=== PATIENT | female | born 1975 | race Caucasian/White ===

== ENCOUNTER 2017-01-06 20:37 | Emergency (ER) | payer BC ==
[~2017-01-06] VITALS: Ht 165.1 cm; Wt 56.1 kg
[~2017-01-06 20:37] MED LIST: MTR600X PO
[2017-01-06 20:40] VITALS: BP 124/87; PULSE 69; TEMP 36.8; O2SAT 98; Ht 165.1 cm; Wt 56.1 kg
--- NOTE | 2017-01-06 23:23 | EMERGENCY ROOM VISIT NOTE ---
History First contact with patient: 20:43 Chief Complaint: LACERATION/CUT (SUT/DERMABOND) Stated Complaint: CUT ON HEAD History of Present Illness The patient is a 41 year old female who presents to the Emergency Room with complaints of a laceration to her scalp. The patient reports that she opened a medicine cabinet door, then bent over to help her child before standing up. She forgot that the door was open, and hit her head on the corner of the door. She denies any loss of consciousness, headache, nausea, neck pain or other concerning symptoms. She rates her discomfort a 3 out of 10. Tetanus immunization is up-to-date. Review of Systems 10 system review was performed and was negative except for pertinent positives and negatives as indicated in history of present illness Past Medical/Surgical History Medical Problems: (1) No significant past medical history Surgical Problems: (1) No history of previous surgery Family History Unremarkable Social History Smoking Status: Never Smoker Alcohol Use: occasionally Marital Status: other (legally ) Housing Status: lives with family Occupation Status: employed Current/Historical Medications Scheduled PRN Ibuprofen (Ibuprofen), 600 MG PO Q4H PRN for PAIN, ESPINAL, CRAMPING OR FEVER Physical Exam Vital Signs Date Time Temp Pulse Resp B/P (MAP) Pulse Ox O2 Delivery O2 Flow Rate FiO2 01/06/17 20:40 36.8 69 16 124/87 98 Room Air Physical Exam CONSTITUTIONAL: Healthy and well nourished. Alert and oriented X 3 with positive affect. Patient does not appear in any acute distress. HEENT: Examination of the superior scalp shows a 1 cm laceration that does not extend into the underlying subcutaneous tissue. No hematoma formation or active bleeding. Pupils equal, round and reactive. No hemotympanum or epistaxis. NECK: Full active range of motion without discomfort. INTEGUMENTARY: No rash or other significant dermatologic conditions noted. NEUROLOGIC: No focal neurologic deficits noted. Medical Decision & Procedures ED Course Patient history and physical exam were performed. Nurse's notes were reviewed. Vital signs were reviewed and were normal. The patient was advised that the laceration does not extend into the underlying subcutaneous space, and is well approximated. I did suggest allowing the wound to heal by secondary intention. The patient was in agreement. The wound was cleansed and covered with a bacitracin ointment. She was instructed to keep the wound clean, watching for any signs of infection. Intermittent application of ice as needed for swelling. Ibuprofen or Tylenol if needed for additional pain relief. The patient was happy with plan of care, voiced understanding of all discharge instructions, and denied any significant pain at the time of discharge. Medical Decision Medication Reconcilliation Current Medication List: was personally reviewed by me Blood Pressure Screening Patient's blood pressure: Normal blood pressure Impression Primary Impression: Laceration of scalp Departure Information Dispostion Home / Self-Care Condition GOOD Referrals No Doctor, Assigned Forms HOME CARE DOCUMENTATION FORM, IMPORTANT VISIT INFORMATION Patient Instructions My [facility] Additional Instructions Keep wound clean and covered with an antibiotic ointment. Do not allow any crusting or dried blood to accumulate. If this occurs, use a 1:1 solution of hydrogen peroxide/water on a Q-tip/gauze to clean the wound. As long as the wound is wet, keep it covered with an antibiotic ointment. Ice as needed for swelling and pain. Ibuprofen 600 mg and/or Tylenol 1000 mg every 6 hrs if needed for pain. Problem Qualifiers Primary Impression: Laceration of scalp Encounter type: initial encounter Qualified Codes: S01.01XA - Laceration without foreign body of scalp, initial encounter
== END 2017-01-06 21:00 | disposition home or self-care (01) ==
LOC: C.EDB 20:38 → C.EDD 21:00
DX: S01.01XA Laceration without foreign body of scalp, initial encounter (principal); W22.8XXA Striking against or struck by other objects, initial encounter

== ENCOUNTER 2020-09-12 07:36 | Inpatient (IN) ==
[2020-09-12] MEDS ORDERED: DINOPROSTONE 10 MG INSERT PV ONE (08:05)
[2020-09-12] MEDS ORDERED: OXYTOCIN 30 UNITS/500 ML BAG IV PRN ×2 (08:05→23:41)
[2020-09-12 08:27] LABS: Hematocrit (blood only) 31.5 % (37-47); Hemoglobin 10.3 g/dL (12.0-16.0); Mean Corpuscular Hemoglobin 27.5 pg (25-34); Mean Corpuscular Hgb Conc 32.7 g/dL (32-36); Mean Platelet Volume 11.4 fL (7.4-10.4); Nucleated RBC # (auto) 0.02 K/uL (0-0); Nucleated RBC % (auto) 0.2 %; Platelet Count 158 K/uL (130-400); RDW Coefficient of Variation 14.4 % (11.5-14.5); Red Blood Count 3.75 M/uL (4.2-5.4); White Blood Count 9.79 K/uL (4.8-10.8)
[2020-09-12] MEDS: LACTATED RINGER'S 1,000 ML IV PRN ×2 (08:30→17:57)
--- NOTE | 2020-09-12 08:38 | History & Physical Report ---
Date of Service September 12, 2020 Assessment & Plan (1) AMA (advanced maternal age) multigravida 35+: (2) with maternal age 40 years or more in third trimester: 45-year-old female -0-3-1 at 39 weeks of gestation presenting today for induction of labor at term, Vital signs stable afebrile heart rate reassuring GBS negative Plan to admit, monitor, labs and cervical ripening with Cervidil. Discussed what to expect from induction and all questions were answered. Admission and Anticipated Discharge Date Admission Date: September 12, 2020 History of Present Illness Primary Care Provider: Deb Alcala PA-C Patient is to 45-year-old -0-3-1 at 39 weeks of gestation who was scheduled for induction of labor at term due to being AMA. She has no complaints. She denies contractions, leakage of fluid, vaginal bleeding and she reports good movements. Her has been complicated by 1 AMA, had CVS 2 history of Pompeii disease, carrier, father of baby is negative 3 recurrent vaginal Tiff on Terazol 2 times a week 4 history of C. difficile 5) Mild asthma Allergies Allergy/AdvReac Type Severity Reaction Status Date / Time No Known Allergies Allergy Verified 08/03/20 09:03 Home Medications Medication Instructions Recorded Confirmed Type albuterol mcg INHALATION QID PRN 08/03/20 History beclomethasone dipropionate [Qvar] 80 mcg INHALATION BID 08/03/20 08/03/20 History cetirizine [Zyrtec] 10 mg PO DAILY 08/03/20 08/03/20 History docusate sodium 100 mg PO BID 08/03/20 08/03/20 History nifedipine [Procardia XL] 30 mg PO BID #50 tab 08/03/20 Rx vit-ferrous sulfat-FA 1 tab PO DAILY 08/03/20 08/03/20 History [] terconazole 0.4 % VAGINAL 2XWK 08/03/20 08/03/20 History Patient History Social History Smoking Status: Never smoker Hx Alcohol Use: No Hx Substance Use: No Preferred Language: Serbian Beliefs That Will Affect Care: None marital status: Current Living Situation: Spouse and Family Feels Safe at Home: No Assistive Devices: None OB History FT in 2014 3 [employer]AB [employer] History NO h/o STD's, no h/o HSV/ Chlamydia/ GC Review of Systems All systems reviewed & are unremarkable except as noted in HPI & below Physical Exam Constitutional: WD/WN, vitals as above well developed and well nourished NAD Gastrointestinal (Abdomen): normal bowel sounds, soft, nontender, no hepatosplenomegaly (Gravid, Todd 8 lb) Genitourinary: normal external appearance Manual OB Exam: + cervical dilation 2 cm, + cervical effacement 60% and + station -2 OB Exam Monitor Tracing: + external uterine monitor used and + category I Results & Data ([facility]) Vital Signs (Past 12 Hours) Vital Signs Pulse BP 09/12/20 07:48 115 H 149/79 H
[2020-09-12 08:53] LABS: Alanine Aminotransferase 19 U/L (12-78); Albumin Level 2.3 gm/dl (3.4-5.0); Aspartate Aminotransferase 26 U/L (15-37); BUN Creatinine Ratio 14.1 (10-20); Blood Urea Nitrogen 8 mg/dl (7-18); Calcium 8.9 mg/dl (8.5-10.1); Carbon Dioxide 21 mmol/L (21-32); Chloride 110 mmol/L (98-107); Est GFR (African American) 134.8 ml/min; Est GFR (Non-African American) 116.3 ml/min; Glucose 105 mg/dl (70-99); Potassium 3.5 mmol/L (3.5-5.1); Sodium 139 mmol/L (136-145)
[2020-09-12 08:56] LABS: Albumin Globulin Ratio 0.6 (0.9-2); Alkaline Phosphatase 142 U/L (45-117); Bilirubin,Total 0.2 mg/dl (0.2-1); Total Protein 6.3 gm/dl (6.4-8.2)
[2020-09-12] MEDS ORDERED: BUTORPHANOL TARTRATE 1 MG/ML VIAL IV PRN (09:00)
[2020-09-12] MEDS ORDERED: PATIENT'S HEIGHT AND/OR WEIGHT NEEDED SCH (09:15)
--- NOTE | 2020-09-12 15:04 | Obstetrical Progress Note ---
Date of Service September 12, 2020 Assessment & Plan Admission and Anticipated Discharge Date Admission Date: September 12, 2020 Subjective Patient is reevaluated. She has been feeling mild contractions every 3 to 4 minutes. She rates them 1-2 out of 10 in terms of intensity. No leakage of fluid or vaginal bleeding. Good movements. Vaginal exam, unchanged 2 cm, 50%, -2, cervidil is in place heart rate category 1. [place] contractions every 2 to 4 minutes. Continue to monitor closely. Results & Data ([facility]) Vital Signs (Past 12 Hours) Vital Signs Temp Pulse Resp BP 09/12/20 13:24 94 H 128/73 09/12/20 13:21 36.6 C 18 09/12/20 12:05 18 09/12/20 10:57 18 09/12/20 08:59 95 H 117/71 09/12/20 08:35 95 H 117/71 09/12/20 07:48 115 H 149/79 H 09/12/20 07:46 36.8 C
--- NOTE | 2020-09-12 21:19 | Obstetrical Progress Note ---
Date of Service September 12, 2020 Assessment & Plan Admission and Anticipated Discharge Date Admission Date: September 12, 2020 Subjective Is reevaluated to remove Cervidil. She has been walking around and contractions are getting more painful, 3-4/ 10 in intensity. Not very painful when she is laying on her bed. No leakage of fluid or vaginal bleeding and she reports good movements. heart rate category 1, [place], contractions every 2-3 minutes, feels mild to moderate. Vaginal exam, cervix is 3 to 4 cm dilated, 70% effaced, -2 with tight bag. Discussed option of AROM versus food now and await contractions to space out and then start IV Pitocin. She has multiple questions about benefits of risks of each and wants to think about it and then decide. Answered all questions. Continue to monitor closely. Results & Data ([facility]) Vital Signs (Past 12 Hours) Vital Signs Temp Pulse Resp BP 09/12/20 19:26 90 137/68 09/12/20 19:25 36.8 C 18 09/12/20 18:05 18 09/12/20 17:54 18 09/12/20 15:02 36.8 C 80 18 126/67 09/12/20 13:24 94 H 128/73 09/12/20 13:21 36.6 C 18 09/12/20 12:05 18 09/12/20 10:57 18
[2020-09-12] MEDS ORDERED: SODIUM CHLORIDE 0.9% INJ 10 ML VIAL ONE (22:34)
[2020-09-12] MEDS ORDERED: ePHEDrine sulfate 50 MG/ML AMP ONE (22:34)
[2020-09-12] MEDS ORDERED: BUPIVACAINE 0.25% 30 ML VIAL ONE (22:35)
[2020-09-12] MEDS ORDERED: fentaNYL citrate 100 MCG/2 ML VIAL ONE (22:35)
[2020-09-12] MEDS ORDERED: fentaNYL 2MCG/ML ROPIVACAINE 1.25MG/ML 100 ML BAG EPI ONE (22:35)
--- NOTE | 2020-09-12 22:37 | Anesthesiology Consultation ---
Date of Service September 12, 2020 Assessment & Plan Chart Review Chart Review: Acceptable Risk for Surgery, Patient NOT seen in Pre Admission Testing and Acceptable Risk for Labor Epidural Consults Requested none ASA ASA2 Proposed Anesthesia Anesthesia Type: Labor Epidural and CSE History Height/Weight Height: 5 ft 5 in Weight: 70.307 kg Allergies Allergy/AdvReac Type Severity Reaction Status Date / Time No Known Allergies Allergy Verified 08/03/20 09:03 Medications Home Medications Medication Instructions Recorded Confirmed Last Taken cetirizine [Zyrtec] 10 mg PO DAILY 08/03/20 09/12/20 09/12/20 06:00 docusate sodium 100 mg PO TID 08/03/20 09/12/20 09/12/20 06:00 [id number] 1 tab PO DAILY 09/12/20 09/12/20 09/12/20 [] terconazole 1 applic VAGINAL DAILY 09/12/20 09/12/20 09/11/20 Active Medications Generic Name Dose Route Start Last Admin Trade Name Coleq PRN Reason Stop Dose Admin Lactated Ringer's 1,000 mls @ 150 mls/hr 09/12/20 08:05 09/12/20 17:57 Lr IV 09/14/20 08:04 150 mls/hr .[id number] PRN Administration L&D Protocol Protocol Exercise / Class Metabolic Activity II 4-5 Yardwork/Stairs/Walk up hill Past Anesthesia History No Hx of Anesthesia Complications and No Family Hx of Anesthesia Complications History of PONV No Hx of PONV and No Hx of Motion Sickness Social History Smoking Status: Never smoker Hx Alcohol Use: No Hx Substance Use: No Physical Exam Vital Signs Last Vital Signs Temp 36.8 C 09/12/20 22:20 Pulse 81 09/12/20 22:23 Resp 18 09/12/20 22:20 BP 132/69 09/12/20 22:23 Testing Laboratory Results 09/12/20 08:10 09/12/20 08:10
[2020-09-12] MEDS ORDERED: NALOXONE HCL 1 MG in SODIUM CHLORIDE 0.9% 1000ML 1,000 ML IV PRN (23:14)
[2020-09-12] MEDS ORDERED: ONDANSETRON INJ 2 MG/ML 2 ML VIAL IV PRN (23:14)
[2020-09-12] MEDS ORDERED: fentaNYL 2MCG/ML ROPIVACAINE 1.25MG/ML 100 ML BAG EPI PRN (23:14)
[2020-09-12] MEDS ORDERED: NALOXONE HCL 0.4 MG/1 ML VIAL/CARP IV PRN (23:14)
[2020-09-12] MEDS ORDERED: diphenhydrAMINE 50 MG/ML VIAL IV PRN (23:14)
[2020-09-12] MEDS ORDERED: PROMETHAZINE HCL 25 MG in SODIUM CHLORIDE 0.9% 50 ML IV PRN (23:14)
[2020-09-12] MEDS ORDERED: ePHEDrine sulfate 50 MG/ML AMP IV PRN (23:14)
--- NOTE | 2020-09-12 23:41 | Obstetrical Progress Note ---
Date of Service September 12, 2020 Assessment & Plan Admission and Anticipated Discharge Date Admission Date: September 12, 2020 Subjective Late entry from 10:30 pm Patient decided for AROM. Vaginal exam, 4 cm, 70%, bulging tight bag, AROM , abundant clear fluid was obtained. heart rate category 1. Contractions every 1 to 3 minutes. She got more painful and decided for epidural for pain. She received epidural and comfortable now. Continue to monitor closely. We will augment with Pitocin as needed. Results & Data ([facility]) Vital Signs (Past 12 Hours) Vital Signs Temp Pulse Resp BP Pulse Ox 09/12/20 23:36 74 97/53 L 09/12/20 23:32 82 97 09/12/20 23:27 76 97 09/12/20 23:22 78 97 09/12/20 23:20 74 103/56 L 09/12/20 23:17 79 109/56 L 97 09/12/20 23:15 75 106/55 L 09/12/20 23:12 77 110/56 L 98 09/12/20 23:09 89 114/79 09/12/20 23:07 88 99 09/12/20 23:02 84 100 09/12/20 22:57 89 138/74 100 09/12/20 22:52 82 99 09/12/20 22:47 86 99 09/12/20 22:42 85 100 09/12/20 22:23 81 132/69 09/12/20 22:20 36.8 C 18 09/12/20 19:26 90 137/68 09/12/20 19:25 36.8 C 18 09/12/20 18:05 18 09/12/20 17:54 18 09/12/20 15:02 36.8 C 80 18 126/67 09/12/20 13:24 94 H 128/73 09/12/20 13:21 36.6 C 18 09/12/20 12:05 18
[2020-09-13] MEDS: LACTATED RINGER'S 1,000 ML IV PRN (03:30)
[2020-09-13] MEDS ORDERED: MINERAL OIL 30 ML UDC ONE (05:54)
[2020-09-13] MEDS ORDERED: BENZOCAINE 20% AER SPR 82.5 GM CAN EXT PRN (06:44)
[2020-09-13] MEDS ORDERED: ACETAMINOPHEN 325 MG TAB PO PRN (06:44)
[2020-09-13] MEDS ORDERED: DIPHTHERIA/TETANUS/PERTUSSIS 0.5 ML SYR/VIAL IM ONE (06:44)
[2020-09-13] MEDS ORDERED: SUPERCREAM 0.870% 15 GM JAR EXT PRN (06:44)
[2020-09-13] MEDS ORDERED: OXYTOCIN 30 UNITS/500 ML BAG IV PRN (06:44)
[2020-09-13] MEDS ORDERED: HYDROCORTISONE ACETATE 25 MG SUPP PR PRN (06:44)
[2020-09-13] MEDS ORDERED: MEASLES, MUMPS & RUBELLA VIRUS VIAL SQ ONE (06:44)
[2020-09-13] MEDS ORDERED: bisacodyL 10 MG SUPP PR PRN (06:44)
[2020-09-13] MEDS ORDERED: DOCUSATE SODIUM 100 MG CAP PO SCH ×3 (08:00→21:00)
--- NOTE | 2020-09-13 08:25 | Anesthesia Procedure Note ---
Date of Service September 13, 2020 Anesthesia Post Epidural Note Vital Signs Vital Signs: Temp Pulse Resp BP Pulse Ox 36.7 C 85 18 99/58 L 100 09/13/20 06:46 09/13/20 08:17 09/13/20 06:46 09/13/20 08:17 09/13/20 06:22 Notes Mental Status: alert / awake / arousable and participated in evaluation Patient Amnestic to Procedure: No Nausea / Vomiting: adequately controlled Pain: adequately controlled Airway Patency, RR, SpO2: stable & adequate BP & HR: stable & adequate Hydration State: stable & adequate Neuraxial Anesthesia: was administered and sensory block is resolving Anesthetic Complications: no major complications apparent and Pt Satisfied with anesthetic care Epidural: Removed without complications and With tip intact
--- NOTE | 2020-09-13 09:11 | Delivery Summary ---
DATE OF DELIVERY: 08/27/2020. TIME: 06:24 a.m. DETAILS OF DELIVERY: Patient was found to be fully dilated and desired to push. She pushed for about 40 minutes and delivered the head without difficulty. Shoulders were delivered with minimal traction. The baby was handed off to the mother where mouth and nose were suctioned. Cord was clamped x2 and cut at 1 minute delay. Cord blood was obtained. Vagina and perineum were checked for lacerations. There was a small second-degree perineal laceration, which was repaired with 2-0 Vicryl in a running fashion. Excellent hemostasis was achieved. The rest of the vagina was intact. Placenta was found to be in the vagina, delivered spontaneously intact and complete. Uterus was explored and found to be empty. Lower segment was cleared of all clots and debris. The fundus was firm. EBL was 250 mL. Mom and baby tolerated the procedure well. Sponge, needle and instrument counts were correct x2. Baby was a viable female , Apgars 8 and 9, weight is 3359 gr. No complications happened and I was present during whole procedure. Job ID: [id number] [facility]
[2020-09-13] MEDS: IBUPROFEN 600 MG TAB PO PRN ×3 (09:32→20:03)
[2020-09-13] MEDS: FERROUS SULFATE 325 MG TAB PO SCH (13:22)
[2020-09-13] MEDS: PRENATAL VITAMIN 1 TAB PO SCH (13:23)
[2020-09-13] MEDS ORDERED: Nursing to Pharmacy Communication SCH (18:15)
[2020-09-14] MEDS: IBUPROFEN 600 MG TAB PO PRN ×2 (03:22→08:30)
[2020-09-14 06:35] LABS: Hematocrit (blood only) 28.7 % (37-47); Hemoglobin 9.5 g/dL (12.0-16.0); Mean Corpuscular Hemoglobin 27.5 pg (25-34); Mean Corpuscular Hgb Conc 33.1 g/dL (32-36); Mean Corpuscular Volume 82.9 fL (80-100); Mean Platelet Volume 11.1 fL (7.4-10.4); Platelet Count 145 K/uL (130-400); RDW Coefficient of Variation 14.6 % (11.5-14.5); RDW Standard Deviation 43.8 fL (36.4-46.3); Red Blood Count 3.46 M/uL (4.2-5.4)
[2020-09-14] MEDS ORDERED: DOCUSATE SODIUM 100 MG CAP PO SCH (08:00)
[2020-09-14 08:14] VITALS: BP 113/74; PULSE 78; TEMP 97.7; O2SAT 99
[2020-09-14] MEDS: PRENATAL VITAMIN 1 TAB PO SCH (08:30)
[2020-09-14] MEDS: FERROUS SULFATE 325 MG TAB PO SCH (08:33)
--- NOTE | 2020-09-14 10:58 | Obstetrical Progress Note ---
Date of Service September 14, 2020 Subjective Ambulation: ambulating normally Voiding: no voiding problems Passing Gas:: Yes Diet Tolerance:: regular diet Lochia:: Small Feeding Type:: breast feeding Physical Exam Constitutional WD/WN, vitals as above comfortable plans for d/c today abdomen soft and non-tender no edema neg Geovanna's Results & Data ([facility]) Vital Signs (Past 12 Hours) Vital Signs Temp Pulse Resp BP Pulse Ox 09/14/20 07:55 36.5 C 78 18 113/74 99 09/14/20 03:20 36.7 C 79 18 124/75 09/13/20 23:15 36.8 C 81 18 138/77 Laboratory Results 09/12/20 09/12/20 09/12/20 07:50 07:50 08:10 WBC 9.79 RBC 3.75 L Hgb 10.3 L Hct 31.5 L MCV 84.0 MCH 27.5 MCHC 32.7 RDW Std Deviation 44.0 RDW Coeff of [place] 14.4 Plt Count 158 MPV 11.4 H Absolute Nucleated RBC 0.02 H Nucleated RBC % (auto) 0.2 Sodium Potassium Chloride Carbon Dioxide Anion Gap BUN Creatinine Est Cr Clr Drug Dosing Est GFR ( Amer) Est GFR (Non-Af Amer) BUN/Creatinine Ratio Glucose Calcium Total Bilirubin AST ALT Alkaline Phosphatase Total Protein Albumin Globulin Albumin/Globulin Ratio COVID-19 Eval Order Covid19 IDNow [facility] SARS-CoV-2, RNA, NAAT NEGATIVE 09/12/20 09/14/20 08:10 06:20 WBC 11.50 H RBC 3.46 L Hgb 9.5 L Hct 28.7 L MCV 82.9 MCH 27.5 MCHC 33.1 RDW Std Deviation 43.8 RDW Coeff of [place] 14.6 H Plt Count 145 MPV 11.1 H Absolute Nucleated RBC Nucleated RBC % (auto) Sodium 139 Potassium 3.5 Chloride 110 H Carbon Dioxide 21 Anion Gap 8.0 BUN 8 Creatinine 0.53 L Est Cr Clr Drug Dosing Not Reportable Est GFR ( Amer) 134.8 Est GFR (Non-Af Amer) 116.3 BUN/Creatinine Ratio 14.1 Glucose 105 H Calcium 8.9 Total Bilirubin 0.2 AST 26 ALT 19 Alkaline Phosphatase 142 H Total Protein 6.3 L Albumin 2.3 L Globulin 4.0 Albumin/Globulin Ratio 0.6 L COVID-19 Eval Order SARS-CoV-2, RNA, NAAT
[2020-09-14] MEDS ORDERED: bisacodyL 5 MG TABEC PO SCH (20:00)
== END 2020-09-14 12:02 | disposition home or self-care (01) | DRG 807 ==
LOC: 4S1 07:36 → 4N 09-13 11:27